=== PATIENT | male | born 1955 | race Caucasian/White ===

== ENCOUNTER 2016-11-27 01:39 | Emergency (ER) | payer OTHER ==
[~2016-11-27] VITALS: Ht 182.9 cm; Wt 98.4 kg
[2016-11-27 01:45] VITALS: Ht 182.9 cm; Wt 98.4 kg
[2016-11-27] MEDS ORDERED: ALBUT/IPRATROP 3MG/0.5MG NEB 3 ML VIAL INH STA (02:02)
[2016-11-27] MEDS ORDERED: HYDROCODONE/HOMATROPINE SYRUP 5MG/1.5MG 5ML UDP PO STA (02:03)
[2016-11-27 02:32] VITALS: O2SAT 96
[2016-11-27 02:51] LABS: BASO % 0.2 %; BASO ABS # 0.02 K/uL (0-0.2); COMPLETE YES; HEMATOCRIT 40.9 % (42-52); IG% 0.2 %; LYMPH % 20.7 %; LYMPH ABS # 1.78 K/uL (1.2-3.4); MEAN CELL VOLUME 86.1 fL (80-100); MEAN CORPUSCULAR HEMOGLOBIN 29.9 pg (25-34); MEAN CORPUSCULAR HGB CONC 34.7 g/dl (32-36); MEAN PLATELET VOLUME 9.1 fL (7.4-10.4); MONO % 8.6 %; NEUT % 69.3 %; PLATELET COUNT 205 K/uL (130-400); RED BLOOD COUNT 4.75 M/uL (4.7-6.1); WHITE BLOOD COUNT 8.61 K/uL (4.8-10.8)
[2016-11-27 03:10] LABS: ALT/SGPT 44 U/L (12-78); AST/SGOT 22 U/L (15-37); BLOOD UREA NITROGEN 25 mg/dl (7-18); BUN/CREATININE RATIO 17.9 (10-20); CALCIUM 8.4 mg/dl (8.5-10.1); CARBON DIOXIDE 28 mmol/L (21-32); CHLORIDE 105 mmol/L (98-107); GLUCOSE 96 mg/dl (70-99); SODIUM 140 mmol/L (136-145)
[2016-11-27 03:15] LABS: ALB/GLOB RATIO 1.1 (0.9-2); ALKALINE PHOSPHATASE 117 U/L (45-117); CKMB/CK RATIO 1.6 (0-3.0)
[2016-11-27] MEDS ORDERED: ONDANSETRON 8 MG/54 ML D5W IV ONE (04:00)
[2016-11-27 04:42] LABS: URINE APPEARANCE CLEAR (CLEAR); URINE BILIRUBIN NEG (NEG); URINE COLOR YELLOW; URINE NITRITE NEG (NEG); URINE SPECIFIC GRAVITY 1.016 (1.000-1.030); UROBILINOGEN NEG (NEG)
[2016-11-27 04:44] LABS: MANUAL MICROSCOPIC REQUIRED? NO; REVIEW REQ? NO
[2016-11-27] MEDS ORDERED: LEVO100T7 PO (05:08)
[2016-11-27] MEDS ORDERED: RIZA10TA18 PO (05:11)
[2016-11-27] MEDS ORDERED: AZITHROMYCIN 250 MG TAB PO STA (05:16)
[2016-11-27] MEDS ORDERED: AZIT250T5 PO (05:20)
[2016-11-27] MEDS ORDERED: ALBUTEROL HFA 8 GM INHALER INH ONE (05:30)
[2016-11-27 05:35] VITALS: BP 116/64; PULSE 84; TEMP 36.8; O2SAT 94
--- NOTE | 2016-11-27 06:50 | DIAGNOSTIC IMAGING REPORT ---
CHEST ONE VIEW PORTABLE CLINICAL HISTORY: EVALUATE RESPIRATORY DISTRESS.DYSPNEA COMPARISON STUDY: No previous studies for comparison. FINDINGS: The bones soft tissues and hemidiaphragms are normal. The cardiomediastinal silhouette is normal. The lungs are clear. The pulmonary vasculature is normal. IMPRESSION: Negative chest. Electronically signed by: Lv Fuentes M.D. 11/27/2016 6:49 AM Dictated Date/Time: 11/27/2016 6:48 AM
--- NOTE | 2016-11-27 07:21 | EMERGENCY ROOM VISIT NOTE ---
History Report prepared by Neville: Ang Wilson Under the Supervision of: Dr. Tunde House M.D. First contact with patient: 01:56 Chief Complaint: SHORTNESS OF BREATH Stated Complaint: COUGH,SORTNESS OF BREATH Nursing Triage Summary: Short of breath History of Present Illness The patient is a 61 year old male who presents to the Emergency Room with complaints of persistent cough and flulike symptoms that started 4 days ago. The cough is not productive, but he notes that he can occasionally taste some blood with the cough. The patient also complains of shortness of breath and a rattle in his chest with breathing. The patient has no history of lung issues and is currently not on any medications for his symptoms. 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 Pt denies LOC, headache, fevers , chills, diaphoresis, visual changes, neck pain, nausea, vomiting, abdominal pain, back pain, melena, hematochezia, urinary symptoms, numbness, weakness, lymphadenopathy, rash, or other complaints. Source of History: patient Onset: 4 days Position: other (global) Timing: other (persistent) Associated Symptoms: + SOB, + chest pain (rattle in chest with breathing ) Review of Systems See HPI for pertinent positives and negatives. A total of ten systems were reviewed and were otherwise negative. Past Medical & Surgical Medical Problems: (1) Hypothyroid (2) Migraine Family History No pertinent family history Social History Smoking Status: Never Smoker Marital Status: Housing Status: lives with significant other Occupation Status: employed Current/Historical Medications Scheduled Azithromycin (Zithromax), 250 MG PO DAILY Levothyroxine Sodium (Levothyroxine Sodium), 100 MCG PO DAILY Rizatriptan Benzoate (Maxalt), 10 MG PO PRN/UD Allergies Coded Allergies: No Known Allergies (Unverified , 11/27/16) Physical Exam Vital Signs Date Time Temp Pulse Resp B/P Pulse Ox O2 Delivery O2 Flow Rate FiO2 11/27/16 05:35 36.8 84 20 116/64 94 Room Air 11/27/16 04:05 81 16 125/65 94 Room Air 11/27/16 03:09 79 14 117/64 Room Air 94 11/27/16 02:32 96 Room Air 11/27/16 02:31 96 Room Air 11/27/16 02:28 37.0 85 21 123/75 97 Room Air 11/27/16 02:21 94 11/27/16 01:59 95 22 121/106 96 Room Air 11/27/16 01:54 96 Room Air 11/27/16 01:45 36.3 106 22 123/88 97 Room Air Physical Exam GENERAL: Awake, alert, mildly ill appearing, no distress. Persistent wet sounding cough present. HEAD: Normocephalic, atraumatic. No edema. EYES: Normal conjunctiva. Sclera non-icteric. EARS: Right TM normal. Left TM normal. NOSE: Mild congestion. OROPHARYNX: Lips, tongue, and mucosa unremarkable. No erythema or exudate. NECK: Supple. No nuchal rigidity. FROM. No adenopathy. Negative jolt accentuation test. RESPIRATORY: CTA bilaterally. Rhonchi and wheezing on left side. CARDIAC: Tachycardic rate, normal rhythm. ABDOMEN: Soft, non distended. No tenderness to palpation. NEURO: Normal sensorium. SKIN: No rash or jaundice noted Medical Decision & Procedures ER Provider Diagnostic Interpretation: X-ray: Per my interpretation, radiologist review. Chest x-ray. Findings: A chest x-ray was performed and revealed no pneumothorax , effusion, pulmonary edema, free air under the diaphragm, or wide mediastinum. Questionable increased markings in left base. Laboratory Results 11/27/16 02:25 Red Blood Count 4.75, Mean Corpuscular Volume 86.1, Mean Corpuscular Hemoglobin 29.9, Mean Corpuscular Hemoglobin Concent 34.7, Mean Platelet Volume 9.1, Neutrophils (%) (Auto) 69.3, Lymphocytes (%) (Auto) 20.7, Monocytes (%) (Auto) 8.6, Eosinophils (%) (Auto) 1.0, Basophils (%) (Auto) 0.2, Neutrophils # (Auto) 5.96, Lymphocytes # (Auto) 1.78, Monocytes # (Auto) 0.74, Eosinophils # (Auto) 0.09, Basophils # (Auto) 0.02 11/27/16 02:25 Test 11/27/16 02:20 11/27/16 02:25 11/27/16 02:30 11/27/16 04:24 Influenza Type A Antigen Neg for Influ A (NEG) Influenza Type B Antigen Neg for Influ B (NEG) White Blood Count 8.61 K/uL (4.8-10.8) Red Blood Count 4.75 M/uL (4.7-6.1) Hemoglobin 14.2 g/dL (14.0-18.0) Hematocrit 40.9 % (42-52) Mean Corpuscular Volume 86.1 fL (80-100) Mean Corpuscular Hemoglobin 29.9 pg (25-34) Mean Corpuscular Hemoglobin Concent 34.7 g/dl (32-36) Platelet Count 205 K/uL (130-400) Mean Platelet Volume 9.1 fL (7.4-10.4) Neutrophils (%) (Auto) 69.3 % Lymphocytes (%) (Auto) 20.7 % Monocytes (%) (Auto) 8.6 % Eosinophils (%) (Auto) 1.0 % Basophils (%) (Auto) 0.2 % Neutrophils # (Auto) 5.96 K/uL (1.4-6.5) Lymphocytes # (Auto) 1.78 K/uL (1.2-3.4) Monocytes # (Auto) 0.74 K/uL (0.11-0.59) Eosinophils # (Auto) 0.09 K/uL (0-0.5) Basophils # (Auto) 0.02 K/uL (0-0.2) RDW Standard Deviation 42.8 fL (36.4-46.3) RDW Coefficient of Variation 13.6 % (11.5-14.5) Immature Granulocyte % (Auto) 0.2 % Immature Granulocyte # (Auto) 0.02 K/uL (0.00-0.02) Anion Gap 7.0 mmol/L (3-11) Est Creatinine Clear Calc Drug Dose 65.6 ml/min Estimated GFR () 61.5 Estimated GFR (Non- 53.1 BUN/Creatinine Ratio 17.9 (10-20) Calcium Level 8.4 mg/dl (8.5-10.1) Total Bilirubin 0.3 mg/dl (0.2-1) Aspartate Amino Transf (AST/SGOT) 22 U/L (15-37) Alanine Aminotransferase (ALT/SGPT) 44 U/L (12-78) Alkaline Phosphatase 117 U/L (45-117) Total Creatine Kinase 70 U/L (39-308) Creatine Kinase MB 1.1 ng/ml (0.5-3.6) Creatine Kinase MB Ratio 1.6 (0-3.0) Troponin I < 0.015 ng/ml (0-0.045) Total Protein 7.3 gm/dl (6.4-8.2) Albumin 3.9 gm/dl (3.4-5.0) Globulin 3.4 gm/dl (2.5-4.0) Albumin/Globulin Ratio 1.1 (0.9-2) Bedside Lactic Acid Venous 1.10 mmol/L (0.90-1.70) Urine Color YELLOW Urine Appearance CLEAR (CLEAR) Urine pH 7.0 (4.5-7.5) Urine Specific [place] 1.016 (1.000-1.030) Urine Protein NEG (NEG) Urine Glucose (UA) NEG (NEG) Urine Ketones NEG (NEG) Urine Occult Blood NEG (NEG) Urine Nitrite NEG (NEG) Urine Bilirubin NEG (NEG) Urine Urobilinogen NEG (NEG) Urine Leukocyte Esterase NEG (NEG) Laboratory results reviewed by me Medications Administered Medications (Trade) Dose Ordered Sig/Romy Route Start Time Stop Time Status Last Admin Dose Admin Albuterol/ Ipratropium (Duoneb) 3 ml NOW STAT INH 11/27/16 02:02 11/27/16 02:04 DC 11/27/16 02:24 3 ML Hydrocodone Bit/ Homatropine Methylb (Hycodan Syrup) 5 ml NOW STAT PO 11/27/16 02:03 11/27/16 02:05 DC 11/27/16 02:24 5 ML Ondansetron HCl (Zofran 8mg Iv) 8 mg NOW ONCE IV 11/27/16 04:00 11/27/16 04:01 DC 11/27/16 04:02 8 MG Azithromycin (Zithromax Tab) 500 mg NOW STAT PO 11/27/16 05:16 11/27/16 05:17 DC 11/27/16 05:28 500 MG Albuterol (Ventolin Hfa Inhaler) 2 puffs NOW ONCE INH 11/27/16 05:30 11/27/16 05:31 DC 11/27/16 05:28 2 PUFFS ECG Indication: other Rate (beats per minute): 85 Rhythm: normal sinus Findings: no acute ischemic change, no ectopy, other (QT interval was normal) ED Course 0158: The patient was evaluated in room B7. A complete history and physical exam was performed. 0202: Ordered Duoneb 3 ml INH. 0203: Ordered Hycodan Syrup 5 ml PO. 0249: At this time, I reevaluated the patient and he was feeling better. 0353: At this time, the patient notes his cough feels better but he is feeling nauseated. Zofran was ordered. I discussed labs and imaging with the patient. 0400: Ordered Zofran 8 mg IV. 0457: At this time, the patient is resting. He is feeling better. 0516: Ordered Azithromycin 500 mg PO. 0530: Ordered Albuterol 2 puffs INH. 0547: I reevaluated the patient. Discussed results and discharge instructions: He verbalized understanding and agreement. The patient is ready for discharge. Medical Decision Triage Nursing notes reviewed. The patient's presentation and history were concerning for respiratory symptoms. Etiologies such as pneumonia, influenza, viral syndrome, pneumonitis, reactive airway disease, COPD,CHF, cardiac ischemia, pulmonary embolism, pneumothorax, musculoskeletal, infections, gastrointestinal, as well as others were entertained. The patient was evaluated. He had coarse breath sounds, especially on the left. He was given a DuoNeb and Hycodan. Blood work was obtained. A CBC, chemistry panel, lactate, LFTs, troponin, and flu testing were negative. Chest x-ray was performed. There is no evidence of lobar infiltrate. There was some perihilar markings that seemed to be somewhat more full than expected on the left side. Given the abnormal breath sounds, especially on the side this could be a developing pneumonia. I discussed treatment with Zithromax and Ventolin. The patient felt comfortable with this. He then became mildly nauseated. He was given Zofran. He was observed. He did very well. He felt much better. The patient declined Hycodan for use outside the ED. Conservative management was discussed. The patient was in agreement. He will follow-up next week with his primary. If he worsens in any way he will be back to the Emergency Room for reevaluation. By the evaluation outlined above other emergent etiologies such as those listed in the differential, as well as others, were deemed relatively unlikely. The patient and for informed about the findings as listed above. All questions were answered and they were pleased with the treatment. Return instructions were outlined and the patient was discharged in stable condition. The patient was referred to [] for follow-up [] for a recheck of the current condition. The chart was completed utilizing [employer] Speech voice recognition software. Grammatical errors, random word insertions, pronoun errors, and incomplete sentences are an occasional consequence of this system due to software limitations, ambient noise, and hardware issues. Any formal questions or concerns about the content, text, or information contained within the body of this dictation should be directly addressed to the physician for clarification. Impression Primary Impression: Pneumonia Additional Impression: Flu-like symptoms Scribe Attestation The scribe's documentation has been prepared under my direction and personally reviewed by me in its entirety. I confirm that the note above accurately reflects all work, treatment, procedures, and medical decision making performed by me. Departure Information Dispostion Home / Self-Care Prescriptions Azithromycin (ZITHROMAX) 250 Mg Tab 250 MG PO DAILY, #4 TAB Prov: Tunde House MD 11/27/16 Referrals Stephen Hunt M.D. (PCP) Forms HOME CARE DOCUMENTATION FORM, IMPORTANT VISIT INFORMATION Patient Instructions My [facility] Additional Instructions Azithromycin(Zithromax) 250mg: Take one a day for 4 additional days. All antibiotics can cause diarrhea. If this occurs and you feel worse or it does not resolve in 1-2 days follow up with your doctor or return to the Emergency Department as this could be signs of serious underlying problems. Any medication can cause an allergic reaction, stop the pills immediately and return to the ER for rash, hives, breathing difficulties, or swelling. Albuterol Inhaler: Take 2 puffs four times daily for seven days, then as needed. Acetaminophen(Tylenol) may be used for fever or pain. Use 1000mg every six hours as needed. Avoid using more than 4000mg in a 24 hour period. AND/OR Ibuprofen(Motrin, Advil) may be used for fever or pain. Use 600mg every six hours as needed. Take with food. Avoid using more than 2400mg in a 24 hour period. Do not use 2400mg per day for more than three consecutive days without physician direction. Prolonged inappropriate use can lead to stomach upset or ulcers. Controlling your fever with Tylenol and Ibuprofen as above will make you feel better. Rest and drink plenty of fluids. Avoid strenuous activity until your symptoms resolve and your breathing returns to normal. Return to the ER for chest pain, difficulty breathing, persistent fevers, vomiting, worsening of your condition, or as needed. Follow up with your primary physician in 2-3 days for a recheck of the current condition. Problem Qualifiers
[2017-03-26] MEDS ORDERED: CEPH500C2 PO (11:05)
== END 2016-11-27 05:35 | disposition home or self-care (01) ==
LOC: C.EDB 01:40
DX: J18.9 Pneumonia, unspecified organism (principal); R68.89 Other general symptoms and signs; Z88.1 Allergy status to other antibiotic agents

== ENCOUNTER 2017-03-25 11:15 | Observation (INO) | payer OTHER ==
[~2017-03-25] VITALS: Ht 182.9 cm; Wt 98.9 kg
[~2017-03-25 11:15] MED LIST: LEVO100T7 PO; RIZA10TA18 PO
[2017-03-25] MEDS ORDERED: LIDO/EPINEPHRINE/SOD BICARB 20 ML VIAL INFIL ONE (11:51)
[2017-03-25] MEDS ORDERED: XYLOCAINE 1%/SOD BICARB 20 ML VIAL INFIL ONE (11:53)
--- NOTE | 2017-03-25 13:19 | DIAGNOSTIC IMAGING REPORT ---
HEAD WITHOUT CONTRAST (CT) CLINICAL HISTORY: 61 years-old Male presenting with EVALUATE CHI/CONCUSSION, hit the right side of the head now complaining of neck pain. TECHNIQUE: Multidetector CT imaging of the head was performed without the use of intravenous contrast. COMPARISON: None. CT DOSE: 1160.74 mGy-cm inclusive of the cervical spine. FINDINGS: Soft tissue laceration overlying the right frontal region with small subjacent subgaleal hematoma. No osseous injury. Brain parenchyma normal in appearance with preserved castillo-white differentiation. No mass effect or midline shift. No hemorrhage or acute territorial infarct. No hydrocephalus. No extra-axial fluid collection. Paranasal sinuses and mastoid air cells clear. Calvarium intact. IMPRESSION: Laceration of the right frontal region with small subjacent subgaleal hematoma. No acute osseous injury. No acute intracranial pathology. Electronically signed by: Stephen Vargas M.D. 03/25/2017 1:17 PM Dictated Date/Time: 03/25/2017 1:13 PM
--- NOTE | 2017-03-25 13:23 | DIAGNOSTIC IMAGING REPORT ---
CERVICAL SPINE W/O CLINICAL HISTORY: 61 years-old Male presenting with EVALUATE CHI/CONCUSSION, hit the right side of the head, now with right neck pain. TECHNIQUE: Multidetector CT of the cervical spine was performed without the use of intravenous contrast. IV contrast: None. COMPARISON: None. CT DOSE: The estimated cumulative dose is 1160.74 mGy.cm inclusive of the head. FINDINGS: Cryptologic Supervisor topogram: Unremarkable. Apparent slight rotatory subluxation of C1 on C2, likely positional. No widening of the basion dental interval or atlantodental interval. Vertebral body heights and alignment preserved. Intervertebral disc spaces maintained with the exception of mild disc height loss at C5-6, where there are mild degenerative changes. No acute fracture or subluxation. Degenerative changes at the atlantoaxial articulation. No prevertebral soft tissue swelling. Paraspinal soft tissues within normal limits. IMPRESSION: No acute osseous injury of the cervical spine. Electronically signed by: Stephen Vargas M.D. 03/25/2017 1:22 PM Dictated Date/Time: 03/25/2017 1:17 PM
[2017-03-25 13:36] LABS: BASO % 0.3 %; BASO ABS # 0.02 K/uL (0-0.2); COMPLETE YES; EOS % 0.5 %; HEMATOCRIT 42.3 % (42-52); IG% 0.2 %; LYMPH % 19.3 %; LYMPH ABS # 1.23 K/uL (1.2-3.4); MEAN CORPUSCULAR HEMOGLOBIN 30.2 pg (25-34); MEAN CORPUSCULAR HGB CONC 34.8 g/dl (32-36); MEAN PLATELET VOLUME 9.2 fL (7.4-10.4); MONO % 7.5 %; NEUT % 72.2 %; PLATELET COUNT 170 K/uL (130-400); RED BLOOD COUNT 4.86 M/uL (4.7-6.1); WHITE BLOOD COUNT 6.36 K/uL (4.8-10.8)
[2017-03-25] MEDS ORDERED: TOPI50TA16 PO (13:37)
[2017-03-25 13:54] LABS: ALT/SGPT 32 U/L (12-78); BLOOD UREA NITROGEN 26 mg/dl (7-18); BUN/CREATININE RATIO 21.8 (10-20); CALCIUM 9.3 mg/dl (8.5-10.1); CARBON DIOXIDE 24 mmol/L (21-32); CHLORIDE 110 mmol/L (98-107); GLUCOSE 89 mg/dl (70-99); SODIUM 140 mmol/L (136-145)
[2017-03-25 13:58] LABS: ALB/GLOB RATIO 1.3 (0.9-2); ALKALINE PHOSPHATASE 83 U/L (45-117); AST/SGOT 18 U/L (15-37)
[2017-03-25] MEDS ORDERED: SODIUM CHLORIDE 0.9% 1000ML 1,000 ML IV SCH ×2 (14:17→15:30)
--- NOTE | 2017-03-25 14:18 | History and Physical ---
History & Physical Date & Time of Service: Mar 25, 2017 at 14:18 Chief Complaint: FALL Primary Care Physician: Stephen Hunt M.D. History of Present Illness Source: patient is a 61 yr male with PMH of Migraine, Hypothyroidism presents to ED with chief complaint of head pain S/P fall which occurred prior to his arrival. He reports that he felt lightheaded while walking in rain after getting out of his car and lost consciousness for about few seconds. He hit his forehead and right ear to a light pole during the episode and obtained laceration to the forehead which was sutured in ED. He states the syncopal episode is witnessed by bystanders and had some confusion after the episode. He states having some dull neck pain as well. Denies any chest pain, SOB, palpitations, visual changes, nausea, vomiting, abdominal pain, diarrhea, urinary symptoms,numbness, weakness, or other complaints. Denies similar episodes previously. Past Medical/Surgical History Medical Problems: (1) Flu-like symptoms Status: Resolved (2) Hypothyroid Status: Chronic (3) Migraine Status: Chronic (4) Pneumonia Status: Resolved Surgical Problems: (1) S/P hernia repair Status: Resolved Family History No pertinent family history Not contributory Social History Smoking Status: Never Smoker Alcohol Use: socially Drug Use: none Marital Status: Occupational Status: employed Allergies Coded Allergies: No Known Allergies (Unverified , 03/25/17) Home Medications Scheduled Levothyroxine Sodium (Levothyroxine Sodium), 100 MCG PO DAILY Rizatriptan Benzoate (Maxalt), 10 MG PO PRN/UD Topiramate (Topamax), 1 TAB PO BID Review of Systems See HPI for pertinent positives & negatives. A total of 10 systems reviewed and were otherwise negative. Physical Exam Vital Signs Date Time Temp Pulse Resp B/P (MAP) Pulse Ox O2 Delivery O2 Flow Rate FiO2 03/25/17 13:50 64 8 140/81 03/25/17 13:45 68 16 03/25/17 13:43 66 03/25/17 13:40 66 16 03/25/17 12:55 61 15 03/25/17 12:50 61 15 96 03/25/17 12:45 60 14 98 Room Air 03/25/17 12:31 128/81 03/25/17 12:15 60 14 100 03/25/17 12:01 137/75 03/25/17 11:45 70 13 97 03/25/17 11:31 147/80 03/25/17 11:25 63 03/25/17 11:22 100 Room Air 03/25/17 11:22 36.4 63 18 129/87 100 Room Air 03/25/17 11:18 129/87 General Appearance: WD/WN, no apparent distress Head: normocephalic, + pertinent finding (Scalp and R ear laceration in bandage ) Eyes: normal inspection, PERRL, EOMI, sclerae normal ENT: normal ENT inspection, hearing grossly normal Neck: supple, trachea midline Respiratory/Chest: chest non-tender, lungs clear, normal breath sounds, no accessory muscle use Cardiovascular: regular rate, rhythm, no edema, no murmur Abdomen/GI: normal bowel sounds, non tender, soft Back: normal inspection Extremities/Musculoskelatal: normal inspection, no pedal edema Neurologic/Psych: refueler II-XII nml as tested, no motor/sensory deficits, alert, normal mood/affect, oriented x 3 Skin: normal color, warm/dry Lymphatic: + pertinent finding (Scalp and R ear laceration in bandage) Diagnostics Laboratory Results Results Past 24 Hours Test 03/25/17 13:18 Range/Units White Blood Count 6.36 4.8-10.8 K/uL Red Blood Count 4.86 4.7-6.1 M/uL Hemoglobin 14.7 14.0-18.0 g/dL Hematocrit 42.3 42-52 % Mean Corpuscular Volume 87.0 80-100 fL Mean Corpuscular Hemoglobin 30.2 25-34 pg Mean Corpuscular Hemoglobin Concent 34.8 32-36 g/dl Platelet Count 170 130-400 K/uL Mean Platelet Volume 9.2 7.4-10.4 fL Neutrophils (%) (Auto) 72.2 % Lymphocytes (%) (Auto) 19.3 % Monocytes (%) (Auto) 7.5 % Eosinophils (%) (Auto) 0.5 % Basophils (%) (Auto) 0.3 % Neutrophils # (Auto) 4.59 1.4-6.5 K/uL Lymphocytes # (Auto) 1.23 1.2-3.4 K/uL Monocytes # (Auto) 0.48 0.11-0.59 K/uL Eosinophils # (Auto) 0.03 0-0.5 K/uL Basophils # (Auto) 0.02 0-0.2 K/uL RDW Standard Deviation 40.5 36.4-46.3 fL RDW Coefficient of Variation 12.7 11.5-14.5 % Immature Granulocyte % (Auto) 0.2 % Immature Granulocyte # (Auto) 0.01 0.00-0.02 K/uL Sodium Level 140 136-145 mmol/L Potassium Level 4.0 3.5-5.1 mmol/L Chloride Level 110 98-107 mmol/L Carbon Dioxide Level 24 21-32 mmol/L Anion Gap 6.0 3-11 mmol/L Blood Urea Nitrogen 26 7-18 mg/dl Creatinine 1.20 0.60-1.40 mg/dl Est Creatinine Clear Calc Drug Dose 69.2 ml/min Estimated GFR () 74.1 Estimated GFR (Non- 64.0 BUN/Creatinine Ratio 21.8 10-20 Random Glucose 89 70-99 mg/dl Calcium Level 9.3 8.5-10.1 mg/dl Total Bilirubin 0.4 0.2-1 mg/dl Aspartate Amino Transf (AST/SGOT) 18 15-37 U/L Alanine Aminotransferase (ALT/SGPT) 32 12-78 U/L Alkaline Phosphatase 83 45-117 U/L Troponin I < 0.015 0-0.045 ng/ml Total Protein 7.1 6.4-8.2 gm/dl Albumin 4.0 3.4-5.0 gm/dl Globulin 3.1 2.5-4.0 gm/dl Albumin/Globulin Ratio 1.3 0.9-[address] head: Laceration of the right frontal region with small subjacent subgaleal hematoma. No acute osseous injury. No acute intracranial pathology. CT C-spine: No acute osseous injury of the cervical spine. EKG EKG:Sinus bradycardia, Incomplete right bundle branch block Impression Assessment and Plan Syncope and Fall: S/P sutures to scalp and R ear Admit in Tele CT head and C-spine: no acute pathology Will do syncopal work up including: ECHO, Carotid Doppler, MRI Brain, EEG Prophylactically start on Ancef for S/P sutures Monitor in Tele for arrhythmias Neuro checks Consult cardiology and Neurology PT/OT H/O Migraine: Continue Topamax Also on Rizatriptan PRN Hypothyroidism: Continue Synthroid Check TSH, Free T4 DVT Px: SCDs for now. Plan to start on Lovenox SQ in AM Code Status: Full Code Disposition: Monitor in Telemetry
[2017-03-25] MEDS ORDERED: ONDANSETRON INJ 2 MG/ML 2 ML VIAL IV PRN (14:30)
[2017-03-25] MEDS ORDERED: ENOXAPARIN 40 MG/0.4 ML SYR SC SCH (14:30)
[2017-03-25] MEDS ORDERED: IV FLUIDS COMPLETED PRN (15:00)
[2017-03-25 15:16] LABS: PROTHROMBIN TIME (PATIENT) 10.3 SECONDS (9.0-12.0)
--- NOTE | 2017-03-25 15:17 | EMERGENCY ROOM VISIT NOTE ---
History Report prepared by Lesleyibdea: Theodore Sy Under the Supervision of: Dr. Tunde House M.D. First contact with patient: 11:37 Chief Complaint: FALL Stated Complaint: FALL History of Present Illness The patient is a 61 year old male who presents to the Emergency Room by EMS with complaints of constant head pain s/p fall occurring just prior to arrival. He states that he was walking when he tripped shortly after getting out of his car. He states that he fell forward and hit his forehead on a light post. The patient does not believe he lost consciousness, but states "I was dazed". He states that his fall was witnessed by bystanders. He states that he failed some cognitive testing following the fall prompting his colleagues to call EMS for him. The patient notes that he felt lightheaded immediately prior to his fall. He states that the fall cut his forehead and ear. Further history was obtained and a bystander witnessed his fall. They stated that he fell straight forward and into a pole. He did not brace himself. He struck the pole and required assistance to get up. The patient does not remember being helped into the office building. He currently complains of neck pain as well. Pt denies visual changes, chest pain, breathing difficulties, nausea, vomiting, abdominal pain, back pain, numbness, weakness, or other complaints. He states that he felt totally normal earlier today. Source of History: patient Onset: Just prior to arrival Position: head Timing: constant Associated Symptoms: + neck pain, No LOC, No chest pain, No SOB Note: The patient also complains of lightheadedness prior to his fall. Review of Systems See HPI for pertinent positives and negatives. A total of ten systems were reviewed and were otherwise negative. Past Medical & Surgical Medical Problems: (1) Flu-like symptoms (2) Hypothyroid (3) Migraine (4) Pneumonia (5) Syncope Surgical Problems: (1) S/P hernia repair Family History No pertinent family history Social History Smoking Status: Unknown if Ever Smoked Marital Status: Housing Status: lives with significant other Occupation Status: employed Current/Historical Medications Scheduled Levothyroxine Sodium (Levothyroxine Sodium), 100 MCG PO DAILY Rizatriptan Benzoate (Maxalt), 10 MG PO PRN/UD Topiramate (Topamax), 1 TAB PO BID Allergies Coded Allergies: No Known Allergies (Unverified , 03/25/17) Physical Exam Vital Signs Date Time Temp Pulse Resp B/P (MAP) Pulse Ox O2 Delivery O2 Flow Rate FiO2 03/25/17 13:50 64 8 140/81 03/25/17 13:45 68 16 03/25/17 13:43 66 03/25/17 13:40 66 16 03/25/17 12:55 61 15 03/25/17 12:50 61 15 96 03/25/17 12:45 60 14 98 Room Air 03/25/17 12:31 128/81 03/25/17 12:15 60 14 100 03/25/17 12:01 137/75 03/25/17 11:45 70 13 97 03/25/17 11:31 147/80 03/25/17 11:25 63 03/25/17 11:22 100 Room Air 03/25/17 11:22 36.4 63 18 129/87 100 Room Air 03/25/17 11:18 129/87 Physical Exam GENERAL: Awake, alert, uncomfortable appearing, in no distress HEAD: Normocephalic. No quiroga sign. No raccoon eyes. 3 cm laceration to the right ear inside the pinna. 7 cm stellate laceration to the right forehead. EYES: Normal conjunctiva. PERRL. EARS: External ears normal. Right TM normal. Left TM normal. NOSE: Atraumatic OROPHARYNX: Lips, tongue, and mucosa unremarkable. No erythema or exudate. NECK: Cervical collar in place. No tracheal deviation or JVD. No posterior midline tenderness. No step offs noted. RESPIRATORY: CTA bilaterally CARDIAC: Regular rate, normal rhythm. ABDOMEN: Inspection reveals no abnormalities. Soft, non distended. No tenderness to palpation. No hernias. BACK: No midline step offs or tenderness to palpation. Unremarkable. PELVIS: Stable to rock. SKIN: Normal. LYMPH: No adenopathy. MUSCULOSKELETAL: Abrasion to the right knee. No bony deformity. No significant tenderness. No laxity to varus or valgus strain. Negative anterior drawl. Remainder of upper and lower extremities are atraumatic. NEURO: GCS 15. Normal sensorium. No sensory or motor deficits noted. Medical Decision & Procedures ER Provider Diagnostic Interpretation: CT: Radiology results as stated below per my review and radiologist interpretation HEAD WITHOUT CONTRAST (CT) FINDINGS: Soft tissue laceration overlying the right frontal region with small subjacent subgaleal hematoma. No osseous injury. Brain parenchyma normal in appearance with preserved castillo-white differentiation. No mass effect or midline shift. No hemorrhage or acute territorial infarct. No hydrocephalus. No extra-axial fluid collection. Paranasal sinuses and mastoid air cells clear. Calvarium intact. IMPRESSION: Laceration of the right frontal region with small subjacent subgaleal hematoma. No acute osseous injury. No acute intracranial pathology. Electronically signed by: Stephen Vargas M.D. CERVICAL SPINE W/O FINDINGS: Driver Service Technician topogram: Unremarkable. Apparent slight rotatory subluxation of C1 on C2, likely positional. No widening of the basion dental interval or atlantodental interval. Vertebral body heights and alignment preserved. Intervertebral disc spaces maintained with the exception of mild disc height loss at C5-6, where there are mild degenerative changes. No acute fracture or subluxation. Degenerative changes at the atlantoaxial articulation. No prevertebral soft tissue swelling. Paraspinal soft tissues within normal limits. IMPRESSION: No acute osseous injury of the cervical spine. Electronically signed by: Stephen Vargas M.D. Laboratory Results 03/25/17 13:18 Red Blood Count 4.86, Mean Corpuscular Volume 87.0, Mean Corpuscular Hemoglobin 30.2, Mean Corpuscular Hemoglobin Concent 34.8, Mean Platelet Volume 9.2, Neutrophils (%) (Auto) 72.2, Lymphocytes (%) (Auto) 19.3, Monocytes (%) (Auto) 7.5, Eosinophils (%) (Auto) 0.5, Basophils (%) (Auto) 0.3, Neutrophils # (Auto) 4.59, Lymphocytes # (Auto) 1.23, Monocytes # (Auto) 0.48, Eosinophils # (Auto) 0.03, Basophils # (Auto) 0.02 03/25/17 13:18 Test 03/25/17 13:18 White Blood Count 6.36 K/uL (4.8-10.8) Red Blood Count 4.86 M/uL (4.7-6.1) Hemoglobin 14.7 g/dL (14.0-18.0) Hematocrit 42.3 % (42-52) Mean Corpuscular Volume 87.0 fL (80-100) Mean Corpuscular Hemoglobin 30.2 pg (25-34) Mean Corpuscular Hemoglobin Concent 34.8 g/dl (32-36) Platelet Count 170 K/uL (130-400) Mean Platelet Volume 9.2 fL (7.4-10.4) Neutrophils (%) (Auto) 72.2 % Lymphocytes (%) (Auto) 19.3 % Monocytes (%) (Auto) 7.5 % Eosinophils (%) (Auto) 0.5 % Basophils (%) (Auto) 0.3 % Neutrophils # (Auto) 4.59 K/uL (1.4-6.5) Lymphocytes # (Auto) 1.23 K/uL (1.2-3.4) Monocytes # (Auto) 0.48 K/uL (0.11-0.59) Eosinophils # (Auto) 0.03 K/uL (0-0.5) Basophils # (Auto) 0.02 K/uL (0-0.2) RDW Standard Deviation 40.5 fL (36.4-46.3) RDW Coefficient of Variation 12.7 % (11.5-14.5) Immature Granulocyte % (Auto) 0.2 % Immature Granulocyte # (Auto) 0.01 K/uL (0.00-0.02) Anion Gap 6.0 mmol/L (3-11) Est Creatinine Clear Calc Drug Dose 69.2 ml/min Estimated GFR () 74.1 Estimated GFR (Non- 64.0 BUN/Creatinine Ratio 21.8 (10-20) Calcium Level 9.3 mg/dl (8.5-10.1) Total Bilirubin 0.4 mg/dl (0.2-1) Aspartate Amino Transf (AST/SGOT) 18 U/L (15-37) Alanine Aminotransferase (ALT/SGPT) 32 U/L (12-78) Alkaline Phosphatase 83 U/L (45-117) Troponin I < 0.015 ng/ml (0-0.045) Total Protein 7.1 gm/dl (6.4-8.2) Albumin 4.0 gm/dl (3.4-5.0) Globulin 3.1 gm/dl (2.5-4.0) Albumin/Globulin Ratio 1.3 (0.9-2) Laboratory results reviewed by me ECG Indication: other (fall) Rate (beats per minute): 57 Rhythm: sinus bradycardia Findings: Q waves (Septal), no acute ischemic change, other (incomplete RBBB) Comparison ECG Date: November 2016 ED Course 1152: The patient was evaluated in room B4B. A complete history and physical exam was performed. 1151: Ordered Buffered Xylocaine/Epinephrine 1% inj 20 mL INFIL. 1410: Upon reexamination, the patient was resting comfortably. I discussed the test results and treatment plan with him. The patient will be evaluated for further management. Medical Decision Prior records/ancillary studies reviewed. Triage Nursing notes reviewed and agree them. Additional history obtained from the family. The patient's history was concerning for syncope. Differential diagnosis: Etiologies such as infection, hypoglycemia, electrolyte abnormalities, cardiac sources, intracerebral event, toxicologic, neurologic, as well as others were entertained. Physical examination: As above. Cervical collar place. Large laceration to the forehead. Laceration to the right ear as well. ER treatment provided: Patient declined analgesia Laceration repair by Daryn Raymond PA-C On reassessment the patient felt better. Diagnostics interpretation by me: ECG: Sinus rhythm The labs revealed an unremarkable CBC and chemistry panel Imaging studies: As above. The patient had an unprovoked syncopal episode which resulted in a significant head injury. Monitoring and further evaluation by internal medicine is appropriate. Patient and were in agreement. Consultation: A consultation was placed with the hospitalist. The case was discussed and diagnostics were reviewed. The patient was evaluated in the ER for further treatment. Consults Time Called: 1405 Consulting Physician: Dr. Rahul Salazar Returned Call: 1410 Discussed the patient's case. The patient will be evaluated for further treatment and disposition. Impression Primary Impression: Syncope Additional Impressions: Scalp laceration Laceration of right ear Closed head injury Scribe Attestation The scribe's documentation has been prepared under my direction and personally reviewed by me in its entirety. I confirm that the note above accurately reflects all work, treatment, procedures, and medical decision making performed by me. Departure Information Dispostion Being Evaluated By Hospitalist Stephen Hernandez M.D. (PCP) Patient Instructions My [facility] Problem Qualifiers Primary Impression: Syncope Syncope type: unspecified Qualified Codes: R55 - Syncope and collapse Additional Impressions: Scalp laceration Encounter type: initial encounter Qualified Codes: S01.01XA - Laceration without foreign body of scalp, initial encounter Laceration of right ear Encounter type: initial encounter Qualified Codes: S01.311A - Laceration without foreign body of right ear, initial encounter Closed head injury Encounter type: initial encounter Qualified Codes: S09.90XA - Unspecified injury of head, initial encounter
--- NOTE | 2017-03-25 16:23 | EMERGENCY ROOM VISIT NOTE ---
ED Visit Note EMERGENCY DEPARTMENT PROCEDURE NOTE: I was asked by Dr. House to repair the forehead and right ear wounds of this 60-year-old male patient. Please refer to their dictation for the complete history, physical exam, and ED course. EMERGENCY DEPARTMENT COURSE: Attention was first turned to the 7 cm right forehead laceration. The wound was prepped with Betadine, and draped sterilely. 1% plain buffered lidocaine was infiltrated for local anesthesia. Wound was explored thoroughly, it did extend down to the frontal bone, there is no evidence for foreign body. Wound was irrigated copiously with normal saline solution. Subcutaneous was reapproximated using 6-0 PDS sutures, then 16, 6-0 nylon sutures in the skin. Similarly the right ear was attended to. The wound was prepped with Betadine and draped sterilely, anesthetized with 1% plain buffered lidocaine and irrigated with normal saline solution. The 3 cm laceration was repaired using 8, 6-0 nylon sutures. There was laceration to the cartilage. Bacitracin and a light dressing were applied. Patient tolerated the procedure well.
[2017-03-25] MEDS ORDERED: ACETAMINOPHEN 500 MG TAB PO STA (17:11)
[2017-03-25] MEDS ORDERED: ACETAMINOPHEN 325 MG TAB PO PRN (17:15)
[2017-03-25] MEDS: ACETAMINOPHEN 325 MG TAB PO PRN ×2 (17:25→23:23)
--- NOTE | 2017-03-25 18:27 | DIAGNOSTIC IMAGING REPORT ---
CAROTID ARTERY ULTRASOUND CLINICAL HISTORY: Syncope COMPARISON STUDY: None. TECHNIQUE: Real-time, grayscale, and color Doppler sonography of the carotid and vertebral arteries was performed. Images were viewed in the transverse and longitudinal planes. FINDINGS: There is minimal atherosclerotic plaque. Velocity measurements are listed below. COMMON CAROTID PEAK SYSTOLIC VELOCITY (CM/S): RIGHT 132 LEFT 113 ICA PEAK SYSTOLIC VELOCITY (CM/S): RIGHT 105 LEFT 61 Systolic ratios between the internal to common carotid arteries are normal. Antegrade flow is seen in the vertebral arteries. The external carotid arteries are patent. Blood pressure in the right arm measured 111/62. Blood pressure in the left arm measured 112/68. IMPRESSION: No evidence of a hemodynamically significant stenosis. Electronically signed by: Malvin Adhikari M.D. 03/25/2017 6:25 PM Dictated Date/Time: 03/25/2017 6:23 PM
--- NOTE | 2017-03-25 18:36 | ECHOCARDIOGRAM REPORT ---
*NOTICE TO RECEIVING [employer] This information is strictly Confidential and protected under [place] law. [place] law prohibits you from making any further disclosure of this information unless further disclosure is expressly permitted by the written consent of the person to whom it pertains or is authorized by law. A general authorization for the release of medical or other information is not sufficient for this purpose. Hospital accepts no responsibility if the information is made available to any other person, INCLUDING THE PATIENT. Interpretation Summary * Name: CHRIST ARMENDARIZ Study Date: 03/25/2017 04:12 PM BP: 123/72 mmHg * Patient Location: ED HR: 65 * : 1955 (M/d/yyyy) Gender: Male Height: 72 in * Age: 61 yrs Ethnicity: [place] Weight: 205 lb * Referring Physician: MINNIE CARLTON DO * Performed By: Gabriella Moya RDCS * * Reason For Study: SYNCOPE * BSA: 2.2 m2 * -- Conclusions -- * The left ventricular wall motion is normal. * Left ventricular systolic function is normal. * The LV Ejection Fraction = 55-60%. * Grade I diastolic dysfunction, (abnormal relaxation pattern). * There is no significant valvualar heart disease. Procedure Details * A complete two-dimensional transthoracic echocardiogram was performed (2D, M-mode, Doppler and color flow Doppler). * A contrast injection of Definity was performed to improve assessment of LV function. * Contrast was injected into an intravenous site in the left arm. * One vial of Definity ultrasound contrast was diluted in normal saline to a total volume of 10 ml. A total of '2' ml of solution was administered during imaging. * Lot # [id number] of Definity utilized for procedure. * Expiration date APR 29. * The attending nurse who injected the contrast agent was ANGEL LEO RN. Left Ventricle * The left ventricle is normal in size. * There is normal left ventricular wall thickness. * Left ventricular systolic function is normal. * Ejection Fraction = 55-60%. * The left ventricular wall motion is normal. Right Ventricle * The right ventricle is normal size. * The right ventricular systolic function is normal as assessed by tricuspid annular plane systolic excursion (TAPSE) (normal >1.5 cm). Atria * The left atrial size is normal. * Right atrial size is normal. * There is no evidence of atrial septal defect, but resolution does not allow assessment for a patent foramen ovale. Mitral Valve * The mitral valve is normal. * There is no mitral valve stenosis. * Significant mitral regurgitation is absent. Tricuspid Valve * The tricuspid valve is normal. * There is no tricuspid stenosis. * Significant tricuspid regurgitation is absent. Aortic Valve * The aortic valve is trileaflet. * Aortic stenosis is absent. * There is no significant aortic regurgitation. Pulmonic Valve * The pulmonary valve is not well seen, but the Doppler examination is normal without significant regurgitation or stenosis. Great Vessels * The aortic root and proximal ascending aorta are normal sized. Pericardium/Pleural * There is no pericardial effusion. Great Vessels * Normal inferior vena cava diameter and respiratory variation suggests normal central venous pressure. Left Ventricular Diastolic Function * Grade I diastolic dysfunction, (abnormal relaxation pattern). MMode 2D Measurements and Calculations IVSd 0.81 cm IVSs 1.3 cm LVIDd 5.8 cm LVIDs 4.0 cm LVPWd 0.99 cm LVPWs 1.8 cm IVS/LVPW 0.82 FS 30.3 % EDV(Teich) 164.1 ml ESV(Teich) 70.7 ml EF(Teich) 56.9 % EDV(cubed) 191.4 ml ESV(cubed) 64.8 ml EF(cubed) 66.2 % % IVS thick 59.9 % % LVPW thick 77.6 % LV mass(C)d 201.3 grams LV mass(C)dI 93.5 grams/m\S\2 LV mass(C)s 240.6 grams LV mass(C)sI 111.8 grams/m\S\2 SV(Teich) 93.5 ml SI(Teich) 43.4 ml/m\S\2 SV(cubed) 126.6 ml SI(cubed) 58.8 ml/m\S\2 Ao root diam 3.4 cm Ao root area 9.2 cm\S\2 LA dimension 3.6 cm LA/Ao 1.1 LVAd ap4 30.5 cm\S\2 LVLd ap4 8.4 cm EDV(MOD-sp4) 92.5 ml EDV(sp4-el) 94.4 ml LVAs ap4 17.7 cm\S\2 LVLs ap4 6.2 cm ESV(MOD-sp4) 41.9 ml ESV(sp4-el) 42.9 ml EF(MOD-sp4) 54.7 % EF(sp4-el) 54.5 % SV(MOD-sp4) 50.6 ml SI(MOD-sp4) 23.5 ml/m\S\2 SV(sp4-el) 51.5 ml SI(sp4-el) 23.9 ml/m\S\2 Doppler Measurements and Calculations MV E max juan j 46.1 cm/sec MV A max juan j 53.4 cm/sec MV E/A 0.86 MV dec time 0.30 sec Ao V2 max 104.7 cm/sec Ao max PG 4.4 mmHg Ao max PG (full) 2.9 mmHg LV V1 max PG 1.5 mmHg LV V1 max 60.6 cm/sec
--- NOTE | 2017-03-25 18:55 | Cardiology Consultation ---
Cardiology Consultation Date of Consultation: Mar 25, 2017 History of Present Illness Dr Perez is a 61 year old male seen in cardiology consultation per the request of Dr Kay for the evaluation of syncope. The patient was in his normal state of health and feeling well earlier today. He parked on a slight grade in front of the [facility] Office building. He got out of his car and started running in the rain toward the front entrance. He recalls feeling short of breath as he ran and he recalls that perhaps he remembers reaching the curb. The next thing he was being assisted by bystanders. He had apparently fallen and impacted a nearby light post as well as the sidewalk and suffered a significant laceration adjacent to his ear and on his forehead that have required suture repair. He does not remember falling. He notes that the details after the fall are somewhat unclear to him. Apparently bystanders did not note any seizure-like activity. CT of the brain has revealed no acute intracranial pathology. Did note the right frontal hematoma. No osseous injury noted. Carotid duplex test is been negative. Laboratory studies including electrolytes, complete blood count, and troponin are all negative. Troponin was negative 1. An EKG performed in the emergency department dated 03/25/17 at 12:14 PM revealed sinus bradycardia 57 bpm with possible incomplete right bundle branch block pattern, age-indeterminate septal infarction pattern with poor R-wave progression noted in leads V1 and V2. Compared to the prior tracing dated 11/27/16 there is been just a subtle change the morphology of lead V2. The patient has no past history of falls, seizure, or syncope. He has no past cardiac history. History Past Medical History: 1. hypothyroidism 2. Dyslipidemia 3. Prostatitis 4. Migraine headaches 5. basal cell carcinoma Past Surgical History: 1. Moh's surgery to remove basal cell carcinoma from the right trapezius 2. Re elbow lateral collateral ligament repair 3. R inguinal hernia repair 4. Colonoscopy in 2014 Social History: . Rare occasional alcohol. Non smoker Family History: The patient's father at age 79. He had a history of atrial fibrillation. He apparently had a fall with a knee injury and had multiple complications after that including a stroke and subsequent . The patient's mother is alive at age 86. She is treated for hypertension and dyslipidemia. The patient had a brother that of tonsil carcinoma age 59. He has 3 other siblings who are healthy. There is no past history of any relatives have suddenly of unexplained circumstances. Review Of Systems See above for pertinent positives & negatives. A total of 10 systems reviewed and were otherwise negative. Allergies Coded Allergies: No Known Allergies (Unverified , 03/25/17) Medications Reported Home Medications Medications Dose Route/Sig Max Daily Dose Days Date Category Topamax (Topiramate) 50 Mg Tab 1 Tab PO BID 03/25/17 Reported Maxalt (Rizatriptan Benzoate) 10 Mg Tab 10 Mg PO PRN/UD 11/27/16 Reported Levothyroxine Sodium 100 Mcg Tab 100 Mcg PO DAILY 11/27/16 Reported Physical Exam Vital Signs (Last 8hrs): Last 8 Hrs Date Time Temp Pulse Resp B/P (MAP) Pulse Ox O2 Delivery O2 Flow Rate FiO2 03/25/17 15:01 123/72 03/25/17 14:55 65 18 03/25/17 14:31 127/93 03/25/17 14:25 62 14 03/25/17 14:01 134/82 03/25/17 13:55 61 15 140/81 03/25/17 13:50 64 8 140/81 03/25/17 13:45 68 16 03/25/17 13:43 66 03/25/17 13:40 66 16 03/25/17 12:55 61 15 03/25/17 12:50 61 15 96 03/25/17 12:45 60 14 98 Room Air 03/25/17 12:31 128/81 03/25/17 12:15 60 14 100 03/25/17 12:01 137/75 03/25/17 11:45 70 13 97 03/25/17 11:31 147/80 03/25/17 11:25 63 03/25/17 11:22 100 Room Air 03/25/17 11:22 36.4 63 18 129/87 100 Room Air 03/25/17 11:18 129/87 General Appearance: Alert and Oriented x3. NAD. Head: Normocephalic Atraumatic. Eyes: PERRLA, EOMI, conjunctiva and sclera clear Neck: Supple. No carotid bruits noted. No JVD. No HJD. Respiratory: Breath sounds clear to auscultation bilaterally. No w/r/r. Cardiovascular: Reg rate and rhythm. S1 and S2 noted. No murmurs, rubs, gallops. PMI non displace. Abdomen: Normal bowel sounds, soft nontender. no abdominal bruits. Extremities: No edema, no clubbing or cyanosis. distal pulses 2/4 bilaterally. Neuro: No focal deficits. Psychiatric: Normal affect. Data Last Resulted 03/25/17 13:18 Red Blood Count 4.86, Mean Corpuscular Volume 87.0, Mean Corpuscular Hemoglobin 30.2, Mean Corpuscular Hemoglobin Concent 34.8, Mean Platelet Volume 9.2, Neutrophils (%) (Auto) 72.2, Lymphocytes (%) (Auto) 19.3, Monocytes (%) (Auto) 7.5, Eosinophils (%) (Auto) 0.5, Basophils (%) (Auto) 0.3, Neutrophils # (Auto) 4.59, Lymphocytes # (Auto) 1.23, Monocytes # (Auto) 0.48, Eosinophils # (Auto) 0.03, Basophils # (Auto) 0.02 Last Resulted 03/25/17 13:18 Past 24 Hours Test 03/25/17 13:18 Range/Units Prothromb Time International Ratio 1.0 0.9-1.1 Prothrombin Time 10.3 9.0-12.0 SECONDS Troponin I < 0.015 0-0.045 ng/ml Imaging: As per history of present illness EKG: As per history of present illness Telemetry reviewed: Sinus rhythm and sinus bradycardia 55 beats minute range Assessment & Plan Impression: 61-year-old male 1. Syncope 2. Head trauma 3. Abnormal EKG age-indeterminate septal infarction pattern Discussion/recommendation: Resting echocardiogram was performed in the emergency department and reviewed independently by the undersigned. The left ventricular wall motion was normal. The myocardial thickness was normal. There is no significant valvular heart disease. Ejection fraction was normal. I would speculate that based on the resting wall motion of the EKG finding of age-indeterminate septal infarction is a false positive. I think the likelihood of this being presentation for underlying coronary artery disease is low. Is difficult to determine if the patient had a parth loss of postural tone with resultant fall and head trauma or if perhaps he was rushing and fell and had such significant head trauma that his recollection of the events is a little unclear. He is to be monitored on telemetry. An MRI is planned. Will likely proceed with a predatory animal exterminator school bus monitor to exclude occult arrhythmia post discharge. Dr. Benz is to assume rounding for service tomorrow. Abdirahman Diggs DO, FACC, FACOI Associate Construction Management Assistant [facility] [place], [facility]
[2017-03-25 19:00] VITALS: O2SAT 98; Ht 182.9 cm; Wt 98.9 kg
--- NOTE | 2017-03-25 19:03 | DIAGNOSTIC IMAGING REPORT ---
BRAIN WITHOUT CONTRAST HISTORY: Mental status change Syncope TECHNIQUE: Multiplanar multisequence MRI of the brain was performed without the use of contrast. COMPARISON STUDY: None. FINDINGS: There are no areas of restricted diffusion to suggest acute infarction. The midline structures are intact. The paranasal sinuses are clear. The mastoid air cells are clear. The ventricles and sulci are within normal limits for age. There is no mass, hematoma, midline shift. The major vascular flow-voids at the skull base are well maintained. IMPRESSION: No acute intracranial abnormality. Right prefrontal extracranial soft tissue edema previously described The above report was generated using voice recognition software. It may contain grammatical, syntax or spelling errors. Electronically signed by: Lv Fuentes M.D. 03/25/2017 7:01 PM Dictated Date/Time: 03/25/2017 6:59 PM
[2017-03-25 19:30] VITALS: BP 113/74; PULSE 58; TEMP 36.5; O2SAT 98
[2017-03-25] MEDS ORDERED: IBUPROFEN 800 MG TAB PO ONE (20:00)
[2017-03-25] MEDS: CEFAZOLIN IV 500 MG in DEXTROSE 5% 50ML 50 ML IV SCH (20:07)
[2017-03-25] MEDS: TOPIRAMATE 25 MG TAB PO SCH (21:19)
[2017-03-25 23:34] VITALS: BP 104/62; PULSE 67; TEMP 36.9; O2SAT 99
[2017-03-26] VITALS (7 sets, daily range): BP systolic 101–111; BP diastolic 65–74; PULSE 55–74; TEMP 36.5–36.8; O2SAT 96–97
[2017-03-26] MEDS: ACETAMINOPHEN 325 MG TAB PO PRN (04:15)
[2017-03-26] MEDS: CEFAZOLIN IV 500 MG in DEXTROSE 5% 50ML 50 ML IV SCH (05:12)
[2017-03-26] MEDS ORDERED: LEVOTHYROXINE 100 MCG TAB PO SCH (06:00)
[2017-03-26 06:52] LABS: BASO % 0.4 %; BASO ABS # 0.02 K/uL (0-0.2); COMPLETE YES; EOS % 1.1 %; HEMATOCRIT 41.2 % (42-52); LYMPH % 29.7 %; LYMPH ABS # 1.63 K/uL (1.2-3.4); MEAN CORPUSCULAR HEMOGLOBIN 30.5 pg (25-34); MEAN CORPUSCULAR HGB CONC 34.2 g/dl (32-36); MEAN PLATELET VOLUME 9.5 fL (7.4-10.4); NEUT % 55.8 %; PLATELET COUNT 162 K/uL (130-400); RED BLOOD COUNT 4.63 M/uL (4.7-6.1); WHITE BLOOD COUNT 5.48 K/uL (4.8-10.8)
[2017-03-26 07:20] LABS: BUN/CREATININE RATIO 17.6 (10-20); CALCIUM 8.9 mg/dl (8.5-10.1); CREATININE 1.4 mg/dl (0.60-1.40); POTASSIUM 4.2 mmol/L (3.5-5.1)
[2017-03-26 07:30] LABS: THYROID STIMULATING HORMONE 2.98 uIu/ml (0.300-4.500)
[2017-03-26] MEDS: TOPIRAMATE 25 MG TAB PO SCH (08:04)
--- NOTE | 2017-03-26 09:48 | Cardiology Follow-Up ---
Subjective General Date of Service: Mar 26, 2017. Pt evaluation today including: conversation w/ patient, physical exam, chart review, lab review, review of studies, conversation w/ strategy consultant, review of inpatient medication list History of Present Illness The patient is a 61 year old male seen in follow-up. No recurrent lightheadedness or dizziness overnight. No dysrhythmias or significant bradycardia on telemetry. is present at bedside. Patient denies chest discomfort or unusual shortness of breath. He does not recall details around the time of his head injury. Reports feeling lightheaded when he immediately got out of his car after driving from [place]. Reports a history of micturition syncope during his 20s. Allergies Coded Allergies: No Known Allergies (Unverified , 03/25/17) Social History Smoking Status: Unknown if Ever Smoked Hx Tobacco Use In Past Year?: No Hx Alcohol Use - Type And Amou: Yes (wine-very rarely) Hx Substance Use - Type And Am: No Problem List Medical Problems: (1) Closed head injury Status: Acute (2) Laceration of right ear Status: Acute (3) Scalp laceration Status: Acute Review of Systems Respiratory: No cough, No sputum, No wheezing, No shortness of breath, No dyspnea on exertion, No dyspnea at rest, No hemoptysis Cardiac: No chest pain, No orthopnea, No PND, No edema, No claudication, No palpitations Physical Exam Vital Signs Last Vital Signs Documentation Date Time Temp Pulse Resp B/P (MAP) Pulse Ox O2 Delivery O2 Flow Rate FiO2 03/26/17 08:02 Room Air 03/26/17 07:34 74 106/71 (83) 03/26/17 07:23 36.8 18 97 Physical Exam Constitutional: General Apperance: well-nourished Level of Distress: NAD Ambulation: ambulating normally Head: with evidence of injury Lungs: Auscultation: breath sounds normal, no wheezing, no rales/crackles, no rhonchi Cardiovascular: Heart Auscultation: RRR, normal S1, normal S2, no murmurs, no rubs Peripheral Pulses: Radial Pulse: normal on the left, normal on the right Abdomen: Bowel Sounds: normal Inspection & Palpation: soft, non-distended, no tenderness, guarding & rebound Extremities: no cyanosis, no edema, no clubbing, no ulcers Neurologic: Gait & Station: pertinent finding (No focal deficit) Cranial Nerves: grossly intact Assessment and Plan Assessment and Plan Imp: 1. 61-year-old male presents with possible syncopal episode and traumatic head injury. Initial cardiac evaluation including resting 2-D transthoracic echo, ECG, cardiac enzymes, and telemetry monitoring are unremarkable. 2. Remote history of micturition syncope. 3. History of migraine headache 4. Hypothyroidism - controlled Plan/Recommendations: I long discussion with the patient and his regarding further cardiac evaluation of this possible syncopal episode. Is unclear whether the patient suffered a mechanical fall vs.syncope at this time. Patient will be evaluated today by neurology to rule out potential seizure activity as well as for evaluation of concussion. From a cardiac standpoint recommending a two-week outpatient ZIO monitor to exclude occult dysrhythmia as well as exercise stress echocardiography to assess chronotropic competence as well as exclude the presence of underlying ischemic heart disease. Patient and his are agreeable to current plan. He will likely be discharged today after neurology consultation. Thank you for allow me to take part in the care of your patient. Laboratory Results Last 24 Hours Test 03/25/17 13:18 03/26/17 06:25 White Blood Count 6.36 K/uL 5.48 K/uL Red Blood Count 4.86 M/uL 4.63 M/uL Hemoglobin 14.7 g/dL 14.1 g/dL Hematocrit 42.3 % 41.2 % Mean Corpuscular Volume 87.0 fL 89.0 fL Mean Corpuscular Hemoglobin 30.2 pg 30.5 pg Mean Corpuscular Hemoglobin Concent 34.8 g/dl 34.2 g/dl Platelet Count 170 K/uL 162 K/uL Mean Platelet Volume 9.2 fL 9.5 fL Neutrophils (%) (Auto) 72.2 % 55.8 % Lymphocytes (%) (Auto) 19.3 % 29.7 % Monocytes (%) (Auto) 7.5 % 13.0 % Eosinophils (%) (Auto) 0.5 % 1.1 % Basophils (%) (Auto) 0.3 % 0.4 % Neutrophils # (Auto) 4.59 K/uL 3.06 K/uL Lymphocytes # (Auto) 1.23 K/uL 1.63 K/uL Monocytes # (Auto) 0.48 K/uL 0.71 K/uL Eosinophils # (Auto) 0.03 K/uL 0.06 K/uL Basophils # (Auto) 0.02 K/uL 0.02 K/uL RDW Standard Deviation 40.5 fL 40.8 fL RDW Coefficient of Variation 12.7 % 12.7 % Immature Granulocyte % (Auto) 0.2 % 0.0 % Immature Granulocyte # (Auto) 0.01 K/uL 0.00 K/uL Prothrombin Time 10.3 SECONDS Prothromb Time International Ratio 1.0 Sodium Level 140 mmol/L 142 mmol/L Potassium Level 4.0 mmol/L 4.2 mmol/L Chloride Level 110 mmol/L 110 mmol/L Carbon Dioxide Level 24 mmol/L 28 mmol/L Anion Gap 6.0 mmol/L 4.0 mmol/L Blood Urea Nitrogen 26 mg/dl 25 mg/dl Creatinine 1.20 mg/dl 1.40 mg/dl Est Creatinine Clear Calc Drug Dose 69.2 ml/min 65.8 ml/min Estimated GFR () 74.1 61.5 Estimated GFR (Non- 64.0 53.1 BUN/Creatinine Ratio 21.8 17.6 Random Glucose 89 mg/dl 125 mg/dl Calcium Level 9.3 mg/dl 8.9 mg/dl Total Bilirubin 0.4 mg/dl Aspartate Amino Transf (AST/SGOT) 18 U/L Alanine Aminotransferase (ALT/SGPT) 32 U/L Alkaline Phosphatase 83 U/L Troponin I < 0.015 ng/ml Total Protein 7.1 gm/dl Albumin 4.0 gm/dl Globulin 3.1 gm/dl Albumin/Globulin Ratio 1.3 Thyroid Stimulating Hormone (TSH) 2.980 uIu/ml Free Thyroxine 1.01 ng/dl
[2017-03-26] MEDS ORDERED: CEPH500C2 PO (11:05)
--- NOTE | 2017-03-26 11:12 | Discharge Instructions ---
Discharge Instructions Date of Service Mar 26, 2017. Admission Reason for Admission: Syncope Discharge Discharge Diagnosis / Problem: SYNCOPE /FALL Discharge Goals Goal(s): Decrease discomfort, Improve disease control, Diagnostic testing Activity Recommendations Activity Limitations: as noted below (DO NOT DRIVE FOR 1 WEEK ) Shower/Bathe: no limitations Driving or Machine Use: DO NOT DRIVE FOR 1 WEEK . Instructions / Follow-Up Instructions / Follow-Up HOSPITAL FOLLOW UP WITH DR RADHA DELACRUZ IN A WEEK , PLEASE CALL OFFICE TO SCHEDULE APPOINTMENT STITCHES NEEDS TO BE TAKEN OUT IN 1 WEEK , CAN BE DONE AT FAMILY PHYSICIAN'S OFFICE YOU CAN TAKE OVER THE COUNTER TYLENOL OR IBUPROFEN ( TAKE WITH FOOD ) NEEDED FOR HEADACHE PLEASE NOTIFY YOUR FAMILY PHYSICIAN OR RETURN TO ER FOR ANY WORSENING OF HEADACHE, PERSISTED DIZZY SPELL OR VISUAL PROBLEM CONSIDER NEUROLOGY FOLLOW UP -IF NEEDED FOR PERSISTENT HEADACHE CARDIOLOGY OFFICE WILL SCHEDULE YOU FOR CARDICA MONITORING -ZIO PATCH AND OUT PATIENT CARDIAC STRESS TEST Current Hospital Diet Patient's current hospital diet: AHA Diet (Heart Healthy) Discharge Diet Recommended Diet: AHA Diet (Heart Healthy) Pending Studies Studies pending at discharge: no Medical Emergencies . Who to Call and When: Medical Emergencies: If at any time you feel your situation is an emergency, please call 911 immediately. . Non-Emergent Contact Non-Emergency issues call your: Primary Care Provider . . "Provider Documentation" section prepared by Anny Bergman. . VTE Core Measure Inpt VTE Proph given/why not?: Lico Peña, SCD's
[2017-03-26] MEDS ORDERED: CEPHALEXIN 500MG HOME PACK 1 EA BTL PO ONE (11:15)
[2017-03-26] MEDS ORDERED: CEPHALEXIN MONOHYDRATE 500 MG CAP PO ONE (11:15)
--- NOTE | 2017-03-26 11:32 | Progress Note ---
Internal Med Progress Note Date of Service: Mar 26, 2017. Provider Documentation: SUBJECTIVE: pt feels fine , no complain of dizzy spell or lightheadedness no chest pain or SOB has frontal headache , getting relief with PRN Ibuprofen evaluated by Cardiology and Neurology today no cardiac arrhythmia no neurological deficit ,evidence of TIA noted stable to be discharged home today OBJECTIVE: Vital Signs-as noted below Exam: General-no sign of distress Eyes-sclera non icteric , PERRLA/EOMI ENT-superficial laceration on rt scalp area , stitches present , swelling on rt ear , dried blood present , stitches intact Neck-no JVD Lungs-CTA Heart-regular s1/S2 Abdomen-soft, non tender Extremities-no lower ext edema Neuro-AAO x3, no focal deficit Lab data as noted below. ASSESSMENT & PLAN: SYNCOPE leading to mechanical fall no evidence of TIA , no cardiac arrhythmia noted ECHO : normal LV function , EF 65 % with grade 1 Diastolic dysfunction carotid Doppler -no stenosis no arrhythmia noted on tele Orthostatic vitals -negative change appreciate input form Cardiology -doubt the fall /syncope due to cardiogenic pt will have out pt Zio patch and Cardiac stress test appreciate neuro eval , MRI of brain negative for CVA expect for superficial rt sided scalp hematoma no further testing needed pt can take PRN over the counter Tylenol /Ibuprofen for post concussive headache asked not to drive for 1 week need family physician follow up in a week advised to see physician for any symptom of worsening of headache , dizzy spell or vision change SUPERFICIAL SCALP AND RT EAR LACERATION : cont local wound care PO Keflex for 5 days Family physician follow up in a week for suture removal HYPOTHYROIDISM : cont Levothyroxine TSH wnl DVT PROPHYLAXIS scd and teds ambulate DISPOSITION stable to be discharged home today Vital Signs: Date Time Temp Pulse Resp B/P (MAP) Pulse Ox O2 Delivery O2 Flow Rate FiO2 03/26/17 11:10 36.5 62 18 96 Room Air 03/26/17 10:52 36.5 62 18 111/74 (86) 96 Room Air 03/26/17 08:02 Room Air 03/26/17 07:34 74 106/71 (83) 03/26/17 07:34 68 110/68 (82) 03/26/17 07:34 57 103/66 (78) 03/26/17 07:23 36.8 55 18 109/66 (80) 97 Room Air 03/26/17 04:00 97 Room Air 03/26/17 03:52 36.6 58 20 101/65 (77) 97 Room Air 03/26/17 00:00 97 Room Air 03/25/17 23:34 36.9 67 22 104/62 (76) 99 Room Air 03/25/17 19:30 36.5 58 16 113/74 (87) 98 Room Air 03/25/17 19:00 98 Room Air 03/25/17 17:35 64 16 145/89 98 03/25/17 17:04 64 18 149/87 96 Room Air 03/25/17 15:01 123/72 03/25/17 14:55 65 18 03/25/17 14:31 127/93 03/25/17 14:25 62 14 03/25/17 14:01 134/82 03/25/17 13:55 61 15 140/81 03/25/17 13:50 64 8 140/81 03/25/17 13:45 68 16 03/25/17 13:43 66 03/25/17 13:40 66 16 03/25/17 12:55 61 15 03/25/17 12:50 61 15 96 03/25/17 12:45 60 14 98 Room Air 03/25/17 12:31 128/81 03/25/17 12:15 60 14 100 03/25/17 12:01 137/75 03/25/17 11:45 70 13 97 03/25/17 11:31 147/80 03/25/17 11:25 63 03/25/17 11:22 100 Room Air 03/25/17 11:22 36.4 63 18 129/87 100 Room Air 03/25/17 11:18 129/87 Lab Results: Results Past 24 Hours Test 03/25/17 13:18 03/26/17 06:25 Range/Units White Blood Count 6.36 5.48 4.8-10.8 K/uL Red Blood Count 4.86 4.63 4.7-6.1 M/uL Hemoglobin 14.7 14.1 14.0-18.0 g/dL Hematocrit 42.3 41.2 42-52 % Mean Corpuscular Volume 87.0 89.0 80-100 fL Mean Corpuscular Hemoglobin 30.2 30.5 25-34 pg Mean Corpuscular Hemoglobin Concent 34.8 34.2 32-36 g/dl Platelet Count 170 162 130-400 K/uL Mean Platelet Volume 9.2 9.5 7.4-10.4 fL Neutrophils (%) (Auto) 72.2 55.8 % Lymphocytes (%) (Auto) 19.3 29.7 % Monocytes (%) (Auto) 7.5 13.0 % Eosinophils (%) (Auto) 0.5 1.1 % Basophils (%) (Auto) 0.3 0.4 % Neutrophils # (Auto) 4.59 3.06 1.4-6.5 K/uL Lymphocytes # (Auto) 1.23 1.63 1.2-3.4 K/uL Monocytes # (Auto) 0.48 0.71 0.11-0.59 K/uL Eosinophils # (Auto) 0.03 0.06 0-0.5 K/uL Basophils # (Auto) 0.02 0.02 0-0.2 K/uL RDW Standard Deviation 40.5 40.8 36.4-46.3 fL RDW Coefficient of Variation 12.7 12.7 11.5-14.5 % Immature Granulocyte % (Auto) 0.2 0.0 % Immature Granulocyte # (Auto) 0.01 0.00 0.00-0.02 K/uL Prothrombin Time 10.3 9.0-12.0 SECONDS Prothromb Time International Ratio 1.0 0.9-1.1 Sodium Level 140 142 136-145 mmol/L Potassium Level 4.0 4.2 3.5-5.1 mmol/L Chloride Level 110 110 98-107 mmol/L Carbon Dioxide Level 24 28 21-32 mmol/L Anion Gap 6.0 4.0 3-11 mmol/L Blood Urea Nitrogen 26 25 7-18 mg/dl Creatinine 1.20 1.40 0.60-1.40 mg/dl Est Creatinine Clear Calc Drug Dose 69.2 65.8 ml/min Estimated GFR () 74.1 61.5 Estimated GFR (Non- 64.0 53.1 BUN/Creatinine Ratio 21.8 17.6 10-20 Random Glucose 89 125 70-99 mg/dl Calcium Level 9.3 8.9 8.5-10.1 mg/dl Total Bilirubin 0.4 0.2-1 mg/dl Aspartate Amino Transf (AST/SGOT) 18 15-37 U/L Alanine Aminotransferase (ALT/SGPT) 32 12-78 U/L Alkaline Phosphatase 83 45-117 U/L Troponin I < 0.015 0-0.045 ng/ml Total Protein 7.1 6.4-8.2 gm/dl Albumin 4.0 3.4-5.0 gm/dl Globulin 3.1 2.5-4.0 gm/dl Albumin/Globulin Ratio 1.3 0.9-2 Thyroid Stimulating Hormone (TSH) 2.980 0.300-4.500 uIu/ml Free Thyroxine 1.01 0.80-1.60 ng/dl
--- NOTE | 2017-03-26 11:34 | Discharge Summary ---
Discharge Summary Date of Service Mar 26, 2017. Discharge Summary Admission Date: Mar 25, 2017 at 14:44 Discharge Date: Mar 26, 2017 Discharge Disposition: Home Principal Diagnosis: SYNCOPE /FALL Procedures: ECHO : The left ventricular wall motion is normal. Left ventricular systolic function is normal. The LV Ejection Fraction = 55-60%. Grade I diastolic dysfunction, (abnormal relaxation pattern). There is no significant valvualar heart disease. CT HEAD : IMPRESSION: Laceration of the right frontal region with small subjacent subgaleal hematoma. No acute osseous injury. No acute intracranial pathology. MRI OF BRAIN : IMPRESSION: No acute intracranial abnormality. Right prefrontal extracranial soft tissue edema previously described CAROTID DOPPLER : NO evidence of stenosis Consultations: [facility] Medication Reconciliation New Medications: Cephalexin Monohydrate (Keflex) 500 Mg Cap 500 MG PO QID for 4 Days, #16 CAP Continued Medications: Levothyroxine Sodium (Levothyroxine Sodium) 100 Mcg Tab 100 MCG PO DAILY, TAB Rizatriptan Benzoate (Maxalt) 10 Mg Tab 10 MG PO PRN/UD, TAB Topiramate (Topamax) 50 Mg Tab 1 TAB PO BID, TAB Admission Information HPI (per Admitting provider): Qasimmarciano is a 61 yr male with PMH of Migraine, Hypothyroidism presents to ED with chief complaint of head pain S/P fall which occurred prior to his arrival. He reports that he felt lightheaded while walking in rain after getting out of his car and lost consciousness for about few seconds. He hit his forehead and right ear to a light pole during the episode and obtained laceration to the forehead which was sutured in ED. He states the syncopal episode is witnessed by bystanders and had some confusion after the episode. He states having some dull neck pain as well. Denies any chest pain, SOB, palpitations, visual changes, nausea, vomiting, abdominal pain, diarrhea, urinary symptoms,numbness, weakness, or other complaints. Denies similar episodes previously. Physical Exam (per Admitting): General Appearance: WD/WN, no apparent distress Head: normocephalic, + pertinent finding (Scalp and R ear laceration in bandage) Eyes: normal inspection, PERRL, EOMI, sclerae normal ENT: normal ENT inspection, hearing grossly normal Neck: supple, trachea midline Respiratory/Chest: chest non-tender, lungs clear, normal breath sounds, no accessory muscle use Cardiovascular: regular rate, rhythm, no edema, no murmur Abdomen/GI: normal bowel sounds, non tender, soft Back: normal inspection Extremities/Musculoskelatal: normal inspection, no pedal edema Neurologic/Psych: gis technician II-XII nml as tested, no motor/sensory deficits, alert , normal mood/affect, oriented x 3 Skin: normal color, warm/dry Lymphatic: + pertinent finding (Scalp and R ear laceration in bandage) Hospital Course SYNCOPE leading to mechanical fall no evidence of TIA , no cardiac arrhythmia noted ECHO : normal LV function , EF 65 % with grade 1 Diastolic dysfunction carotid Doppler -no stenosis no arrhythmia noted on tele Orthostatic vitals -negative change appreciate input form Cardiology -doubt the fall /syncope due to cardiogenic pt will have out pt Zio patch and Cardiac stress test appreciate neuro eval , MRI of brain negative for CVA expect for superficial rt sided scalp hematoma no further testing needed pt can take PRN over the counter Tylenol /Ibuprofen for post concussive headache asked not to drive for 1 week need family physician follow up in a week advised to see physician for any symptom of worsening of headache , dizzy spell or vision change SUPERFICIAL SCALP AND RT EAR LACERATION : cont local wound care PO Keflex for 5 days Family physician follow up in a week for suture removal HYPOTHYROIDISM : cont Levothyroxine TSH wnl DVT PROPHYLAXIS scd and teds ambulate DISPOSITION stable to be discharged home today Total time spent on discharge = This includes examination of the patient, discharge planning, medication reconciliation, and communication with other providers. Discharge Instructions Discharge Instructions Date of Service Mar 26, 2017. Admission Reason for Admission: Syncope Discharge Discharge Diagnosis / Problem: SYNCOPE /FALL Discharge Goals Goal(s): Decrease discomfort, Improve disease control, Diagnostic testing Activity Recommendations Activity Limitations: as noted below (DO NOT DRIVE FOR 1 WEEK ) Shower/Bathe: no limitations Driving or Machine Use: DO NOT DRIVE FOR 1 WEEK . Instructions / Follow-Up Instructions / Follow-Up HOSPITAL FOLLOW UP WITH DR STEPHEN DELACRUZ IN A WEEK , PLEASE CALL OFFICE TO SCHEDULE APPOINTMENT STITCHES NEEDS TO BE TAKEN OUT IN 1 WEEK , CAN BE DONE AT FAMILY PHYSICIAN'S OFFICE YOU CAN TAKE OVER THE COUNTER TYLENOL OR IBUPROFEN ( TAKE WITH FOOD ) NEEDED FOR HEADACHE PLEASE NOTIFY YOUR FAMILY PHYSICIAN OR RETURN TO ER FOR ANY WORSENING OF HEADACHE, PERSISTED DIZZY SPELL OR VISUAL PROBLEM CONSIDER NEUROLOGY FOLLOW UP -IF NEEDED FOR PERSISTENT HEADACHE CARDIOLOGY OFFICE WILL SCHEDULE YOU FOR CARDICA MONITORING -ZIO PATCH AND OUT PATIENT CARDIAC STRESS TEST Current Hospital Diet Patient's current hospital diet: AHA Diet (Heart Healthy) Discharge Diet Recommended Diet: AHA Diet (Heart Healthy) Pending Studies Studies pending at discharge: no Medical Emergencies . Who to Call and When: Medical Emergencies: If at any time you feel your situation is an emergency, please call 911 immediately. . Non-Emergent Contact Non-Emergency issues call your: Primary Care Provider . . "Provider Documentation" section prepared by Anny Bergman. . VTE Core Measure Inpt VTE Proph given/why not?: Lico Peña, SCD's Additional Copies To Stephen Hunt M.D.
--- NOTE | 2017-03-26 12:21 | Neurology Consultation ---
Neurology Consultation Date of Consultation: Mar 26, 2017. Attending Physician: Anny Bergman M.D. Primary Care Physician: Stephen Hunt M.D. History of Present Illness Source: patient, family DR Perez is a 61 yr old R handed male with migraine, and hypothyroidism. He was in his usual state of good health. He drove to the [facility] from [place] yesterday AM and arrived at 1030 AM. He got out of car felt lightheaded, rushed to the clinic as it was raining. He felt progressively lightheaded and fell forward with a a brief LOC, striking his R head, chest, arm , hand and knee. A bystander helped him up and in to the clinic. No sz activity was witnessed. Dr Perez was brought in to the clinic, vitals normal and was directed to ER as he appeared confused and had a significant laceration of his R forehead. He developed a bifrontal headache which has persisted. Family indicates that cognition has gradually improved to nearly baseline as of this am. There was no focal neurologic signs or sx such as vertigo, diplopia, dysarthria, unilateral weakness or numbness. There was no tongue biting or incontinence. He had eaten breakfast and has otherwise been well. Only chest pain was on the right after striking his chest. None of meds were new or changed in dose. In general he has no orthostatic lightheadedness, abnl sweating, early satiety. He indicates that gait is nml. there have been no falls. No tremor, no REM behavior disorder. Past Medical/Surgical History Medical Problems: (1) Closed head injury Status: Acute (2) Laceration of right ear Status: Acute (3) Scalp laceration Status: Acute Family History Father: no pertinent history Mother: HTN Sibling(s): cancer Social History Smoking Status: Never smoker Smokeless Tobacco Use: No Alcohol Use: socially Drug Use: none Marital Status: Housing Status: lives with significant other Occupation Status: employed Allergies Coded Allergies: No Known Allergies (Unverified , 03/25/17) Current Inpatient Medications Current Inpatient Medications Medications (Trade) Dose Ordered Sig/Romy Route Start Time Stop Time Status Last Admin Dose Admin Acetaminophen (Tylenol Tab) 650 mg Q4H PRN PO 03/25/17 14:30 04/24/17 14:29 03/26/17 04:15 650 MG Ondansetron HCl (Zofran Inj) 4 mg Q6H PRN IV 03/25/17 14:30 04/24/17 14:29 Levothyroxine Sodium (Synthroid Tab) 100 mcg DAILYBB PO 03/26/17 06:00 04/25/17 06:59 03/26/17 06:24 100 MCG Topiramate (Topamax Tab) 50 mg BID PO 03/25/17 21:00 04/24/17 20:59 03/26/17 08:04 50 MG Miscellaneous (Iv Fluids Completed) 1 ea PRN PRN N/A 03/25/17 15:00 03/25/18 14:59 Cefazolin Sodium 500 mg/Dextrose 52.5 ml @ 100 mls/hr Q12H IV 03/25/17 17:00 04/04/17 16:59 03/26/17 05:12 100 MLS/HR Review of Systems Eyes: No worsening of vision, No eye pain, No redness, No discharge, No diplopia, No problem reported ENT: No hearing loss, No unusual epistaxis, No nasal symptoms, No sore throat, No tinnitus, No dental problems, No trouble swallowing, No problem reported Respiratory: No cough, No sputum, No wheezing, No shortness of breath, No dyspnea on exertion, No dyspnea at rest, No hemoptysis, No problem reported Cardiovascular: + chest pain Musculoskeletal: + joint pain Genitourinary - Male: No hematuria, No dysuria, No urinary frequency, No urinary urgency, No urinary hesitancy, No urinary retention, No urinary incontinence, No penile discharge, No lesions, No impotence, No problem reported Neurologic: + weakness, No memory loss, No paralysis, No numbness/tingling, No vertigo, No balance problems, No problem reported Physical Exam Vital Signs (Past 24 Hrs): Date Time Temp Pulse Resp B/P (MAP) Pulse Ox O2 Delivery O2 Flow Rate FiO2 03/26/17 11:10 36.5 62 18 96 Room Air 03/26/17 10:52 36.5 62 18 111/74 (86) 96 Room Air 03/26/17 08:02 Room Air 03/26/17 07:34 74 106/71 (83) 03/26/17 07:34 68 110/68 (82) 03/26/17 07:34 57 103/66 (78) 03/26/17 07:23 36.8 55 18 109/66 (80) 97 Room Air 03/26/17 04:00 97 Room Air 03/26/17 03:52 36.6 58 20 101/65 (77) 97 Room Air 03/26/17 00:00 97 Room Air 03/25/17 23:34 36.9 67 22 104/62 (76) 99 Room Air 03/25/17 19:30 36.5 58 16 113/74 (87) 98 Room Air 03/25/17 19:00 98 Room Air 03/25/17 17:35 64 16 145/89 98 03/25/17 17:04 64 18 149/87 96 Room Air 03/25/17 15:01 123/72 03/25/17 14:55 65 18 03/25/17 14:31 127/93 03/25/17 14:25 62 14 03/25/17 14:01 134/82 03/25/17 13:55 61 15 140/81 03/25/17 13:50 64 8 140/81 03/25/17 13:45 68 16 03/25/17 13:43 66 03/25/17 13:40 66 16 03/25/17 12:55 61 15 03/25/17 12:50 61 15 96 03/25/17 12:45 60 14 98 Room Air 03/25/17 12:31 128/81 03/25/17 12:15 60 14 100 03/25/17 12:01 137/75 No significant orthstasis noted. There is a sutured R frontal laceration with mild swelling and tenderness. There is blood in the right external ear canal with mild swelling of the soft tissue around the ear. There is mild tenderness of the R ribs. There are bandages on most of the fingers of the R hand. There is an abrasion on the right knee. Neck is supple. No spinal deformities. Minor decreased blink frequency.No tongue lacerations noted. No carotid bruits, heart RRR, lungs clear , abd soft and NT. Posterior tibial pulses intact. Perrla, R ON nml, unable to visualize on left, nml EOM, perez, mild difficulty elevating R brow. Nml facial sensation, speech, language. Tongue midline, no lacerations noted. Mental status. Pt is awake, alert, affect is mildly different than baseline. Mildly flat, minimal distractability. OX3, naming, reps commands nml. Memory 3/ 3 at 3 minutes. Motor, no rest tremor, no cogwheel rigidity, full strength, no drift, nml PINA. Symm reflexes, downgoing toes. Cerebellar nml, Vibration sense intact. Gait, marginal decreased R arm swing likely related to injury. No postural instability. Laboratory Results Past 24 Hours: 03/26/17 06:25 Red Blood Count 4.63, Mean Corpuscular Volume 89.0, Mean Corpuscular Hemoglobin 30.5, Mean Corpuscular Hemoglobin Concent 34.2, Mean Platelet Volume 9.5, Neutrophils (%) (Auto) 55.8, Lymphocytes (%) (Auto) 29.7, Monocytes (%) (Auto) 13.0, Eosinophils (%) (Auto) 1.1, Basophils (%) (Auto) 0.4, Neutrophils # (Auto ) 3.06, Lymphocytes # (Auto) 1.63, Monocytes # (Auto) 0.71, Eosinophils # (Auto ) 0.06, Basophils # (Auto) 0.02 03/26/17 06:25 Test 03/25/17 13:18 03/26/17 06:25 Prothrombin Time 10.3 SECONDS (9.0-12.0) Prothromb Time International Ratio 1.0 (0.9-1.1) Total Bilirubin 0.4 mg/dl (0.2-1) Aspartate Amino Transf (AST/SGOT) 18 U/L (15-37) Alanine Aminotransferase (ALT/SGPT) 32 U/L (12-78) Alkaline Phosphatase 83 U/L (45-117) Troponin I < 0.015 ng/ml (0-0.045) Total Protein 7.1 gm/dl (6.4-8.2) Albumin 4.0 gm/dl (3.4-5.0) Globulin 3.1 gm/dl (2.5-4.0) Albumin/Globulin Ratio 1.3 (0.9-2) White Blood Count 5.48 K/uL (4.8-10.8) Red Blood Count 4.63 M/uL (4.7-6.1) Hemoglobin 14.1 g/dL (14.0-18.0) Hematocrit 41.2 % (42-52) Mean Corpuscular Volume 89.0 fL (80-100) Mean Corpuscular Hemoglobin 30.5 pg (25-34) Mean Corpuscular Hemoglobin Concent 34.2 g/dl (32-36) Platelet Count 162 K/uL (130-400) Mean Platelet Volume 9.5 fL (7.4-10.4) Neutrophils (%) (Auto) 55.8 % Lymphocytes (%) (Auto) 29.7 % Monocytes (%) (Auto) 13.0 % Eosinophils (%) (Auto) 1.1 % Basophils (%) (Auto) 0.4 % Neutrophils # (Auto) 3.06 K/uL (1.4-6.5) Lymphocytes # (Auto) 1.63 K/uL (1.2-3.4) Monocytes # (Auto) 0.71 K/uL (0.11-0.59) Eosinophils # (Auto) 0.06 K/uL (0-0.5) Basophils # (Auto) 0.02 K/uL (0-0.2) RDW Standard Deviation 40.8 fL (36.4-46.3) RDW Coefficient of Variation 12.7 % (11.5-14.5) Immature Granulocyte % (Auto) 0.0 % Immature Granulocyte # (Auto) 0.00 K/uL (0.00-0.02) Anion Gap 4.0 mmol/L (3-11) Est Creatinine Clear Calc Drug Dose 65.8 ml/min Estimated GFR () 61.5 Estimated GFR (Non- 53.1 BUN/Creatinine Ratio 17.6 (10-20) Calcium Level 8.9 mg/dl (8.5-10.1) Thyroid Stimulating Hormone (TSH) 2.980 uIu/ml (0.300-4.500) Free Thyroxine 1.01 ng/dl (0.80-1.60) MRI brain R frontal subgaleal hematoma,otherwise neg. Carotid US no significant stenosis Imaging CT/MRI brain subgaleal hematoma R frontal region otherwise nml. Carotid us Test 03/25/17 13:18 03/26/17 06:25 White Blood Count 6.36 5.48 Red Blood Count 4.86 4.63 Hemoglobin 14.7 14.1 Hematocrit 42.3 41.2 Mean Corpuscular Volume 87.0 89.0 Mean Corpuscular Hemoglobin 30.2 30.5 Mean Corpuscular Hemoglobin Concent 34.8 34.2 Platelet Count 170 162 Mean Platelet Volume 9.2 9.5 Neutrophils (%) (Auto) 72.2 55.8 Lymphocytes (%) (Auto) 19.3 29.7 Monocytes (%) (Auto) 7.5 13.0 Eosinophils (%) (Auto) 0.5 1.1 Basophils (%) (Auto) 0.3 0.4 Neutrophils # (Auto) 4.59 3.06 Lymphocytes # (Auto) 1.23 1.63 Monocytes # (Auto) 0.48 0.71 Eosinophils # (Auto) 0.03 0.06 Basophils # (Auto) 0.02 0.02 RDW Standard Deviation 40.5 40.8 RDW Coefficient of Variation 12.7 12.7 Immature Granulocyte % (Auto) 0.2 0.0 Immature Granulocyte # (Auto) 0.01 0.00 Prothrombin Time 10.3 Prothrombin Time INR 1.0 Sodium Level 140 142 Potassium Level 4.0 4.2 Chloride Level 110 110 Carbon Dioxide Level 24 28 Anion Gap 6.0 4.0 Blood Urea Nitrogen 26 25 Creatinine 1.20 1.40 Est Creatinine Clear Calc Drug Dose 69.2 65.8 Estimated GFR () 74.1 61.5 Estimated GFR (Non- 64.0 53.1 BUN/Creatinine Ratio 21.8 17.6 Random Glucose 89 125 Calcium Level 9.3 8.9 Total Bilirubin 0.4 Aspartate Amino Transferase (AST) 18 Alanine Aminotransferase (ALT) 32 Alkaline Phosphatase 83 Troponin I < 0.015 Total Protein 7.1 Albumin 4.0 Globulin 3.1 Albumin/Globulin Ratio 1.3 Thyroid Stimulating Hormone (TSH) 2.980 Free Thyroxine 1.01 Impression Syncope, possibly orthostatic, query mild dehydration based on BUN/CR ratio. Query dysrhythmia. Agree with outpt cardiac monitoring. No evidence of autonomic dysfunction by history. No evidence of sz, or transient ischemia resulting in fall. The pts affect appears mildly different than baseline, likely a mild post- concussive encephalopathy which sounds as if improving and I would suspect would continue to improve. TORY Walden MD
[2017-03-26] MEDS ORDERED: ENOXAPARIN 40 MG/0.4 ML SYR SC SCH (21:00)
== END 2017-03-26 12:37 | disposition home or self-care (01) ==
LOC: EDBD 11:15 → C.EDB 11:16 → C.2T 14:44 → ENRESERV 15:22
PROVIDERS: ADMIT Internal Medicine; ATTEND Hospitalist
DX: R55 Syncope and collapse (principal); W01.198A Fall on same level from slipping, tripping and stumbling with subsequent striking against other object, initial encounter; S01.01XA Laceration without foreign body of scalp, initial encounter; S01.311A Laceration without foreign body of right ear, initial encounter; E03.9 Hypothyroidism, unspecified; Z79.899 Other long term (current) drug therapy